=== PATIENT | female | born 1960 | race Two or more races ===

== ENCOUNTER 2018-02-23 14:52 | Outpatient (CLI) | payer OTHER ==
[~2018-02-23 14:52] MED LIST: IBUPROFEN800 MG PO
== END 2018-02-23 15:29 | disposition home or self-care (01) ==
LOC: RAD 14:52
DX: Z80.0 Family history of malignant neoplasm of digestive organs (principal); D37.4 Neoplasm of uncertain behavior of colon; D12.5 Benign neoplasm of sigmoid colon

== ENCOUNTER 2018-02-25 07:10 | Outpatient (CLI) | payer OTHER | END 2018-02-25 07:27 | disposition home or self-care (01) | LOC: TOM 07:10 | DX: Z80.0 Family history of malignant neoplasm of digestive organs (principal); D37.4 Neoplasm of uncertain behavior of colon; D12.5 Benign neoplasm of sigmoid colon ==

== ENCOUNTER 2023-05-12 09:30 | Inpatient (IN) | payer OTHER ==
[~2023-05-12] VITALS: Ht 162.6 cm; Wt 73.9 kg
[2023-05-12 12:01] LABS: PH,URINE 7.5 (5.0-8.0); URINE APPEARANCE Turbid; URINE BILIRRUBIN Negative (NEGATIVE); URINE BLOOD Negative; URINE COLOR Yellow; URINE GLUCOSE Negative (NEGATIVE); URINE LEUKOCYTE Small; URINE NITRATE Negative; URINE PROTEIN Negative (NEGATIVE); URINE UROBILINOGEN 0.2 E.U./dl
[2023-05-12 12:06] LABS: URINE BACTERIA 1233.4 uL (0.0-1933); URINE EPITHELIAL CELLS 31.3 uL (0.0-38.8); URINE RBC 8.4 uL (0.0-20.8); URINE WBC 14.5 uL (0.0-23.2)
[2023-06-01 15:01] LABS: INR 1.04; PARTIAL THROMBOPLASTIN TIME 30.3 SECONDS (22.0-34.0); PROTHROMBIN TIME 10.9 SECONDS (9.0-11.5)
[2023-06-01 19:28] LABS: HEMATOCRIT 34.7 % (36.0-45.00); MEAN CELL VOLUME 92.8 fL (80.00-100.00); MEAN CORPUSCULAR HEMOGLOBIN 32.1 pg (27.00-32.0); MEAN CORPUSCULAR HGB CONC 34.5 g/dl (32.0-36.0); PLATELET COUNT 287 K/uL (150-450); RED BLOOD COUNT 3.73 M/uL (4.00-6.00); RED CELL DISTRIBUTION WIDTH 13.1 % (11.5-14.5)
[2023-06-01 19:46] LABS: ALBUMIN 3.8 gm/dL (3.4-5.0); CREATININE SERUM 0.74 mg/dL (0.55-1.02); GFR 79.78; MAGNESIUM 1.8 mg/dL (1.8-2.4); POTASSIUM 3.37 mEq/L (3.5-5.1)
[2023-06-02 06:21] LABS: HEMATOCRIT 31.2 % (36.0-45.00); HEMOGLOBIN 10.8 g/dL (12.0-15.00); MEAN CELL VOLUME 92.5 fL (80.00-100.00); MEAN CORPUSCULAR HEMOGLOBIN 32.2 pg (27.00-32.0); MEAN CORPUSCULAR HGB CONC 34.8 g/dl (32.0-36.0); PLATELET COUNT 242 K/uL (150-450); RED BLOOD COUNT 3.37 M/uL (4.00-6.00); RED CELL DISTRIBUTION WIDTH 13.1 % (11.5-14.5)
[2023-06-02 06:45] LABS: ALBUMIN 3.1 gm/dL (3.4-5.0); CALCIUM 8.4 mg/dL (8.5-10.1); CREATININE SERUM 0.64 mg/dL (0.55-1.02); GFR 94.34; PHOSPHOROUS 3.3 mg/dL (2.5-4.9); POTASSIUM 3.6 mEq/L (3.5-5.1)
[2023-06-03 06:43] LABS: HEMATOCRIT 31.7 % (36.0-45.00); HEMOGLOBIN 11.2 g/dL (12.0-15.00); MEAN CELL VOLUME 90.7 fL (80.00-100.00); MEAN CORPUSCULAR HEMOGLOBIN 32.1 pg (27.00-32.0); MEAN CORPUSCULAR HGB CONC 35.3 g/dl (32.0-36.0); PLATELET COUNT 249 K/uL (150-450); RED CELL DISTRIBUTION WIDTH 12.8 % (11.5-14.5)
[2023-06-03 06:59] LABS: ALBUMIN 3.2 gm/dL (3.4-5.0); CALCIUM 8.6 mg/dL (8.5-10.1); CREATININE SERUM 0.66 mg/dL (0.55-1.02); GFR 91.05; MAGNESIUM 1.9 mg/dL (1.8-2.4); PHOSPHOROUS 2.7 mg/dL (2.5-4.9); POTASSIUM 4.3 mEq/L (3.5-5.1)
[2023-06-04 23:13] LABS: HEMATOCRIT 39.8 % (36.0-45.00); HEMOGLOBIN 13.5 g/dL (12.0-15.00); MEAN CELL VOLUME 91.9 fL (80.00-100.00); MEAN CORPUSCULAR HEMOGLOBIN 31.1 pg (27.00-32.0); MEAN CORPUSCULAR HGB CONC 33.9 g/dl (32.0-36.0); PLATELET COUNT 354 K/uL (150-450); RED BLOOD COUNT 4.33 M/uL (4.00-6.00); RED CELL DISTRIBUTION WIDTH 12.7 % (11.5-14.5)
[2023-06-05 00:13] LABS: ALBUMIN 3.5 gm/dL (3.4-5.0); CALCIUM 8.9 mg/dL (8.5-10.1); CREATININE SERUM 0.62 mg/dL (0.55-1.02); GFR 97.86; MAGNESIUM 1.8 mg/dL (1.8-2.4); POTASSIUM 4.59 mEq/L (3.5-5.1)
[2023-06-05 06:15] LABS: HEMATOCRIT 38.5 % (36.0-45.00); HEMOGLOBIN 13.4 g/dL (12.0-15.00); MEAN CELL VOLUME 89.8 fL (80.00-100.00); MEAN CORPUSCULAR HEMOGLOBIN 31.3 pg (27.00-32.0); MEAN CORPUSCULAR HGB CONC 34.8 g/dl (32.0-36.0); PLATELET COUNT 348 K/uL (150-450); RED BLOOD COUNT 4.29 M/uL (4.00-6.00); RED CELL DISTRIBUTION WIDTH 12.7 % (11.5-14.5)
[2023-06-05 06:55] LABS: ALBUMIN 3.5 gm/dL (3.4-5.0); CALCIUM 9.7 mg/dL (8.5-10.1); CREATININE SERUM 0.6 mg/dL (0.55-1.02); GFR 101.63; MAGNESIUM 1.6 mg/dL (1.8-2.4); PHOSPHOROUS 4.1 mg/dL (2.5-4.9); POTASSIUM 4.88 mEq/L (3.5-5.1)
[2023-06-06 08:18] LABS: HEMATOCRIT 33.4 % (36.0-45.00); HEMOGLOBIN 11.9 g/dL (12.0-15.00); MEAN CELL VOLUME 89.8 fL (80.00-100.00); MEAN CORPUSCULAR HGB CONC 35.7 g/dl (32.0-36.0); PLATELET COUNT 332 K/uL (150-450); RED BLOOD COUNT 3.72 M/uL (4.00-6.00); RED CELL DISTRIBUTION WIDTH 12.8 % (11.5-14.5)
[2023-06-06 08:20] LABS: ALBUMIN 3.1 gm/dL (3.4-5.0); CALCIUM 8.5 mg/dL (8.5-10.1); CREATININE SERUM 0.57 mg/dL (0.55-1.02); GFR 107.83; MAGNESIUM 2.3 mg/dL (1.8-2.4); PHOSPHOROUS 2.7 mg/dL (2.5-4.9); POTASSIUM 3.9 mEq/L (3.5-5.1)
[2023-06-07 07:46] LABS: HEMATOCRIT 30.6 % (36.0-45.00); HEMOGLOBIN 10.7 g/dL (12.0-15.00); MEAN CELL VOLUME 90.1 fL (80.00-100.00); MEAN CORPUSCULAR HEMOGLOBIN 31.5 pg (27.00-32.0); MEAN CORPUSCULAR HGB CONC 34.9 g/dl (32.0-36.0); PLATELET COUNT 294 K/uL (150-450); RED CELL DISTRIBUTION WIDTH 12.9 % (11.5-14.5)
[2023-06-07 08:17] LABS: ALBUMIN 2.4 gm/dL (3.4-5.0); CALCIUM 8.4 mg/dL (8.5-10.1); CREATININE SERUM 0.43 mg/dL (0.55-1.02); GFR 149.28; PHOSPHOROUS 2.7 mg/dL (2.5-4.9); POTASSIUM 3.62 mEq/L (3.5-5.1)
[2023-06-08 07:15] LABS: HEMATOCRIT 28.2 % (36.0-45.00); MEAN CELL VOLUME 90.2 fL (80.00-100.00); MEAN CORPUSCULAR HGB CONC 35.4 g/dl (32.0-36.0); PLATELET COUNT 290 K/uL (150-450); RED BLOOD COUNT 3.13 M/uL (4.00-6.00); RED CELL DISTRIBUTION WIDTH 12.8 % (11.5-14.5)
[2023-06-08 07:50] LABS: ALBUMIN 2.4 gm/dL (3.4-5.0); CALCIUM 8.4 mg/dL (8.5-10.1); CREATININE SERUM 0.52 mg/dL (0.55-1.02); GFR 119.88; MAGNESIUM 1.8 mg/dL (1.8-2.4); PHOSPHOROUS 4.2 mg/dL (2.5-4.9); POTASSIUM 3.71 mEq/L (3.5-5.1)
[2023-06-09 07:56] LABS: HEMATOCRIT 27.8 % (36.0-45.00); HEMOGLOBIN 9.8 g/dL (12.0-15.00); MEAN CELL VOLUME 91.1 fL (80.00-100.00); MEAN CORPUSCULAR HEMOGLOBIN 32.2 pg (27.00-32.0); MEAN CORPUSCULAR HGB CONC 35.3 g/dl (32.0-36.0); RED BLOOD COUNT 3.06 M/uL (4.00-6.00); RED CELL DISTRIBUTION WIDTH 12.7 % (11.5-14.5)
[2023-06-09 08:18] LABS: PLATELET COUNT 297 K/uL (150-450)
[2023-06-09 08:29] LABS: ALBUMIN 2.7 gm/dL (3.4-5.0); CALCIUM 8.8 mg/dL (8.5-10.1); CREATININE SERUM 0.42 mg/dL (0.55-1.02); GFR 153.38; PHOSPHOROUS 3.9 mg/dL (2.5-4.9); POTASSIUM 3.9 mEq/L (3.5-5.1)
[2023-06-10 09:16] LABS: CALCIUM 8.8 mg/dL (8.5-10.1); CREATININE SERUM 0.45 mg/dL (0.55-1.02); GFR 141.65; POTASSIUM 4.01 mEq/L (3.5-5.1)
[2023-06-11 06:03] LABS: HEMOGLOBIN 10.2 g/dL (12.0-15.00); MEAN CELL VOLUME 90.5 fL (80.00-100.00); MEAN CORPUSCULAR HEMOGLOBIN 31.8 pg (27.00-32.0); MEAN CORPUSCULAR HGB CONC 35.1 g/dl (32.0-36.0); PLATELET COUNT 405 K/uL (150-450); RED BLOOD COUNT 3.21 M/uL (4.00-6.00); RED CELL DISTRIBUTION WIDTH 12.6 % (11.5-14.5)
[2023-06-11 07:25] LABS: ALBUMIN 2.7 gm/dL (3.4-5.0); CALCIUM 8.9 mg/dL (8.5-10.1); CREATININE SERUM 0.57 mg/dL (0.55-1.02); GFR 107.83; MAGNESIUM 2.2 mg/dL (1.8-2.4); PHOSPHOROUS 4.1 mg/dL (2.5-4.9); POTASSIUM 4.25 mEq/L (3.5-5.1)
[2023-06-13 08:19] LABS: HEMATOCRIT 29.1 % (36.0-45.00); HEMOGLOBIN 10.1 g/dL (12.0-15.00); MEAN CELL VOLUME 90.5 fL (80.00-100.00); MEAN CORPUSCULAR HEMOGLOBIN 31.6 pg (27.00-32.0); MEAN CORPUSCULAR HGB CONC 34.9 g/dl (32.0-36.0); PLATELET COUNT 448 K/uL (150-450); RED BLOOD COUNT 3.21 M/uL (4.00-6.00); RED CELL DISTRIBUTION WIDTH 12.7 % (11.5-14.5)
[2023-06-13 08:35] LABS: ALBUMIN 2.8 gm/dL (3.4-5.0); CREATININE SERUM 0.43 mg/dL (0.55-1.02); GFR 149.28; MAGNESIUM 2.2 mg/dL (1.8-2.4); PHOSPHOROUS 4.1 mg/dL (2.5-4.9); POTASSIUM 4.5 mEq/L (3.5-5.1)
[2023-06-15 13:32] LABS: PH,URINE 7.5 (5.0-8.0); URINE APPEARANCE Clear; URINE BILIRRUBIN Negative (NEGATIVE); URINE BLOOD Negative; URINE COLOR Yellow; URINE GLUCOSE Negative (NEGATIVE); URINE LEUKOCYTE Negative; URINE NITRATE Negative; URINE PROTEIN Negative (NEGATIVE); URINE UROBILINOGEN 0.2 E.U./dl
[2023-06-15 14:01] LABS: URINE BACTERIA 0 uL (0.0-1933); URINE WBC 0.6 uL (0.0-23.2)
[2023-06-16 07:18] LABS: HEMATOCRIT 29.3 % (36.0-45.00); HEMOGLOBIN 10.2 g/dL (12.0-15.00); MEAN CELL VOLUME 88.6 fL (80.00-100.00); MEAN CORPUSCULAR HEMOGLOBIN 30.9 pg (27.00-32.0); MEAN CORPUSCULAR HGB CONC 34.9 g/dl (32.0-36.0); PLATELET COUNT 527 K/uL (150-450); RED CELL DISTRIBUTION WIDTH 12.6 % (11.5-14.5)
[2023-06-16 07:43] LABS: ALBUMIN 2.9 gm/dL (3.4-5.0); BILIRUBIN TOTAL 0.33 mg/dL (0.3-1.2); CREATININE SERUM 0.6 mg/dL (0.55-1.02); GFR 101.63; GLOBULINA 3.5 G/DL (2.4-3.5); POTASSIUM 4.58 mEq/L (3.5-5.1); TOTAL PROTEIN 6.4 gm/dL (6.4-8.2)
== END 2023-06-17 16:19 | disposition home or self-care (01) | DRG 329 ==
LOC: O/R 06-01 06:49 → SURG 06-01 06:49 → SURH 06-05 15:06 → SURG 06-05 16:04
PROVIDERS: Internal Medicine; Obstetrics & Gynecology Gynecologic Oncology; ADMIT Colon & Rectal Surgery; ATTEND Colon & Rectal Surgery
PROC: 0DJD4ZZ Inspection of Lower Intestinal Tract, Percutaneous Endoscopic Approach (ICD-10-PCS; 2023-06-01)
PROC: BW3GYZZ Magnetic Resonance Imaging (MRI) of Pelvic Region using Other Contrast (ICD-10-PCS; 2023-06-02)
PROC: 0UT74ZZ Resection of Bilateral Fallopian Tubes, Percutaneous Endoscopic Approach (ICD-10-PCS; 2023-06-04)
PROC: 0TN64ZZ Release Right Ureter, Percutaneous Endoscopic Approach (ICD-10-PCS; 2023-06-04)
PROC: 0UT24ZZ Resection of Bilateral Ovaries, Percutaneous Endoscopic Approach (ICD-10-PCS; 2023-06-04 14:00)
PROC: 0DT84ZZ Resection of Small Intestine, Percutaneous Endoscopic Approach (ICD-10-PCS; principal; 2023-06-05)
PROC: 0DTN0ZZ Resection of Sigmoid Colon, Open Approach (ICD-10-PCS; 2023-06-05)
PROC: 0DBP0ZZ Excision of Rectum, Open Approach (ICD-10-PCS; 2023-06-05)
PROC: 07BC0ZZ Excision of Pelvis Lymphatic, Open Approach (ICD-10-PCS; 2023-06-05)
PROC: 0DJD8ZZ Inspection of Lower Intestinal Tract, Via Natural or Artificial Opening Endoscopic (ICD-10-PCS; 2023-06-05)
PROC: 0DNW0ZZ Release Peritoneum, Open Approach (ICD-10-PCS; 2023-06-05)
PROC: 02HV33Z Insertion of Infusion Device into Superior Vena Cava, Percutaneous Approach (ICD-10-PCS; 2023-06-09)
PROC: BW21ZZZ Computerized Tomography (CT Scan) of Abdomen and Pelvis (ICD-10-PCS; 2023-06-12)
DX: C18.7 Malignant neoplasm of sigmoid colon (principal); K68.2 Retroperitoneal fibrosis; K56.7 Ileus, unspecified; K91.89 Other postprocedural complications and disorders of digestive system; L03.312 Cellulitis of back [any part except buttock and flank]; R59.0 Localized enlarged lymph nodes; K43.9 Ventral hernia without obstruction or gangrene; Z53.31 Laparoscopic surgical procedure converted to open procedure; B95.2 Enterococcus as the cause of diseases classified elsewhere; B96.89 Other specified bacterial agents as the cause of diseases classified elsewhere
CPT/HCPCS: 72198

== ENCOUNTER 2024-09-19 06:01 | Day surgery (SDC) | payer OTHER ==
[2024-09-16 07:18] VITALS: BP 124/85
[~2024-09-19] VITALS: Ht 165.1 cm; Wt 79.4 kg
[2024-09-19] MEDS ORDERED: DESMOPRESSIN ACETATE 4 MCG/ML AMPUL IV SCH (07:00)
[2024-09-19] MEDS ORDERED: CEFAZOLIN SODIUM 1,000 MG VIAL ONE ×2 (07:50→08:17)
[2024-09-19] MEDS ORDERED: BUPIVACAINE HCL/Mpf 0.5% 10ML VIAL ONE (08:43)
[2024-09-19] MEDS ORDERED: LIDOCAINE HCL 1%/EPINEPHRINE 20ML VIAL IJ ONE (08:44)
[2024-09-19] MEDS ORDERED: MORPHINE SULFATE 4 MG/ML VIAL IV ONE ×2 (10:40→12:15)
== END 2024-09-19 13:20 | disposition home or self-care (01) ==
LOC: CIR.AMB 06:01
PROVIDERS: ATTEND Colon & Rectal Surgery
DX: C26.9 Malignant neoplasm of ill-defined sites within the digestive system (principal); C79.89 Secondary malignant neoplasm of other specified sites; C79.2 Secondary malignant neoplasm of skin; L92.3 Foreign body granuloma of the skin and subcutaneous tissue; L90.5 Scar conditions and fibrosis of skin; D21.4 Benign neoplasm of connective and other soft tissue of abdomen